=== PATIENT | male | born 1955 | race Caucasian/White ===

== ENCOUNTER 2016-06-04 10:30 | Emergency (ER) | payer MEDICARE, OTHER ==
[2016-06-04 10:57] VITALS: TEMP 98.8; BMI 24.3
--- NOTE | 2016-06-04 11:34 | EDPRACDOC ---
- General Information Chief Complaint: Bite Stated Complaint: DOG BITE Time Seen by Provider: 06/04/16 11:21 Information Source: Patient Mode Of Arrival: Car Home Medications: Home Medications Calcium Carbonate/Vitamin D3 [Calcium 500 + Vit D Caplet] 1 each PO DAILY [place]-3 Fatty Acids/Fish Oil [Fish Oil 1,[address]] 1 cap PO DAILY 12/12 Omeprazole 20 mg PO DAILY 12/12/13 Tramadol HCl 50 mg PO DAILY 12/12/13 Amox Tr/Potassium Clavulanate [Augmentin Tablet (875mg/125mg)] 1 tab PO BID #14 tablet 06/04/16 Hydrocodone Bit/Acetaminophen [Lortab 5/325] 1 tab PO Q4-6H PRN #15 tab Allergies/Adverse Reactions: Allergies Allergy/AdvReac Type Severity Reaction Status Date / Time No Known Allergies Allergy Verified 12/13/13 07:13 - History of Present Illness 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 R hand dominate. Tetanus UTD, Rabies UTD, animal control notified. 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 Bite Location: Reports: Wrist Bite Cause: Dog Symptoms: Reports: Pain Bite Wound: Reports: Laceration Animal Immunization Status: Current Pain Severity: Moderate Shortness of Breath: None Pruritus Severity: None Last Tetanus: Yes Associated signs and symptoms: Denies: Chills, Bullae, Dizziness, Fever, Fasciculations, Hematemesis, Nausea, Hematuria, Pus, Numbness, Vomiting, Weakness, Swelling, Redness, Other ED Past Medical History - History Reviewed Yes Nurses notes reviewed and agree except as marked - Patient Medical History Respiratory History: Reports: Asthma Musculoskeletal History: Reports: Osteoarthritis Systemic History: Reports: Cancer, Anemia Surgical History: Reports: Appendectomy, Hernia Surgery - Family Medical History Reports: Stroke - Social Medical History Smoking Status: Never smoker ETOH: None Substance Abuse: None EDM Review of Systems - Review of Systems Constitutional: No Symptoms Reported. negative: Fever, Chills, Weakness, Fatigue, Loss of Appetite Respiratory: No Symptoms Reported. negative: Cough, Brassy Cough, Barky Cough, Shortness of Breath, Wheezing, Hemoptysis Cardiovascular: No Symptoms Reported. negative: Chest Pain, Palpitations, Syncope, Edema, Orthopnea, PND, Skin Mottling, Cyanosis Neurological: No Symptoms Reported. negative: Headache, Dizziness, Seizure, Numbness, Weakness, Speech Difficulty, Gait Difficulty Musculoskeletal: Wrist Integumentary: Wound Allergic/Immunologic: No Symptoms Reported. negative: Hives, Itching Hematologic: No Symptoms Reported. negative: Lymphadenopathy, Easy Bruising, Easy Bleeding Psychiatric: No Symptoms Reported. negative: Anxiety, Depression, Hallucinations, Insomnia, Suicidal - Physical Exam Constitutional: Alert Oriented to: Time, Person, Place Last recorded Vital Signs: Last Vital Signs Temp 98.8 F 06/04/16 10:54 Pulse 87 06/04/16 10:54 Resp 18 06/04/16 10:54 BP 175/104 H 06/04/16 10:54 Pulse Ox 97 06/04/16 10:54 Oxygen Pulse Oxygen Saturation 97 O2 Device Room Air Oxygen Flow Rate Fraction of Inspired Oxygen ( FIO2) - HEENT Head: Normal ( normocephalic) - Respiratory/Cardiovascular Respiratory: Normal - CTA (BBS clear to auscultation without adventitious sounds ) Cardiovascular: Normal (RRR without murmur, gallop or rub) - Musculoskeletal Extremities: Normal (Normal tone, Pulses 2+ No cyanosis or edema, FROM) - Integumentary Skin: Normal, Warm, Dry Lymphatics: Normal (no adenopathy) - Neurologic Memory Impaired: Normal Motor Function: Normal Mood Description: Normal Perception: Normal ED Bite Exam - Bite Exam Bite Location: Wrist Wound: Laceration Involvement: Immediate Area Pain Severity: None Involved Limb Distal/Sensory Function: Normal ED Procedures - Suture/Laceration Suture #1 Right Proximal Dorsal Wrist Wound Length (cm): 2 Wound's Depth, Shape: irregular, flap Wound Explored: clean Irrigated w/ Saline (ccs): 100 Betadine Prep?: Yes Anesthesia: Lidocaine w/ Epi Volume Anesthetic (ccs): 3 Wound Repaired With: Sutures Suture Size/Type: 4:0, nylon Number of Sutures: 5 (simple) Sterile Dressing Applied?: No - Differential Diagnosis Laceration Decision Time to Discharge: 11:57 - Departure Disposition: Home Condition: Good Final Diagnosis: R wrist laceration 2 cm simple, Dog bite Instructions: Animal Bite (ED), Care For Your Stitches (ED), Laceration (ED) Education/Counseling Given To: Patient Education/Counseling Given Regarding: Diagnosis, Treatment, Follow Up Referrals: Paxton Winter MD [Primary Care Provider] - One Week Prescriptions: Amox Tr/Potassium Clavulanate [Augmentin Tablet (875mg/125mg)] 1 tab PO BID #14 tablet Hydrocodone Bit/Acetaminophen [Lortab 5/325] 1 tab PO Q4-6H PRN #15 tab PRN Reason: Pain Additional Instructions: Suture removed in 7-10 days. Return for worse or different symptoms.
[2016-06-04 12:13] VITALS: BP 156/92; PULSE 86
== END 2016-06-04 12:09 | disposition home or self-care (01) ==
LOC: ED 10:30 → EDMC 12:09
DX: S61.551A Open bite of right wrist, initial encounter (principal); W54.0XXA Bitten by dog, initial encounter
CPT/HCPCS: 12001; 99282; J3490

== ENCOUNTER 2016-06-13 23:55 | Inpatient (IN) | payer MEDICARE, OTHER ==
[2016-06-14] MEDS ORDERED: ONDANSETRON HCL 4 MG/2 ML VIAL IV ONE (01:35)
[2016-06-14] MEDS ORDERED: NS 1,000 ML IV ONE (01:35)
[2016-06-14] MEDS ORDERED: MORPHINE 4 MG/ML INJECTION IV ONE (01:35)
--- NOTE | 2016-06-14 01:40 | EDPRACDOC ---
[id number] Seen by Provider: 06/14/16 01:32 Mode Of Arrival: Car Home Medications: Home Medications Omeprazole 20 mg PO DAILY 12/12/13 Losartan/Hydrochlorothiazide [Losartan-Hctz 50-12.5 mg Tab] 1 tab PO Q48H Allergies/Adverse Reactions: Allergies Allergy/AdvReac Type Severity Reaction Status Date / Time No Known Allergies Allergy Verified 06/14/16 00:15 - History of Present Illness Onset: 1499 HPI: PT SAID THAT HE'S HAD UPPER ABD PAIN SINCE YESTERDAY. PT SAID HE TOOK PEPTO BISMOL AND IT HAS NOT HELPED. 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 Pain Location: Reports: Epigastric Pain Context: Reports: Spontaneous Pain Severity: Moderate Pain Quality: Reports: Sharp Pain Radiation: Reports: No Radiation Modifying Factors: improves with: Nothing Associated Signs & Symptoms: Reports: Nausea Oral Intake: Decreased Urinary Output: Decreased - Treatment Prior to ED Arrival Reported Medications/Treatment ADVERTISING ANALYST Treated With Medication ADVERTISING ANALYST YES Medications ADVERTISING ANALYST (Medication/ kaopectate 30 cc @ 2200 Dose/Time) Peptobismol 30 cc @ 2300 ED Past Medical History - Patient Medical History Respiratory History: Reports: Asthma GI/ History: Reports: Gastroesophageal Reflux, Ulcer Musculoskeletal History: Reports: Osteoarthritis Systemic History: Reports: Cancer (esophogeal), Anemia Surgical History: Reports: Appendectomy, Hernia Surgery, Other (BILATERAL SHOULDER) - Family Medical History Reports: Stroke - Social Medical History Smoking Status: Never smoker ETOH: None Substance Abuse: None Lives In: Home EDM Review of Systems - Review of Systems ROS Negative Except as Marked: Yes All systems reviewed and were negative except as marked Gastrointestinal: Pain - Physical Exam Constitutional: Alert (Awake), No apparent distress Oriented to: Time, Person, Place Last recorded Vital Signs: Last Vital Signs Temp 100.4 F 06/14/16 21:29 Pulse 106 06/14/16 21:29 Resp 18 06/14/16 21:29 BP 126/56 L 06/14/16 21:29 Pulse Ox 92 06/14/16 21:29 Oxygen Pulse Oxygen Saturation 97 O2 Device Room Air Oxygen Flow Rate Fraction of Inspired Oxygen ( FIO2) - HEENT Head: Normal ( normocephalic) Eye Exam: Normal (PERRL, EOMI, Sclera white) Oropharynx: Normal (Pharynx:Moist without exudate,Gums-no swelling) ENT EAC: Normal TMJ: Normal Nose: No Symptoms Reported (septum midline) Neck: Normal (FROM, trachea at midline) - Respiratory/Cardiovascular Respiratory: Normal - CTA (BBS clear to auscultation without adventitious sounds ) Cardiovascular: Normal (RRR without murmur, gallop or rub) - GI Auscultation: Normal (NABS) Palpation: Normal (Soft,No rebound or guarding, non distended) Tenderness: Mild, Epigastric Tello's Sign: Negative - Musculoskeletal Back: Normal (Non-Tender) Extremities: Normal (Normal tone, Pulses 2+ No cyanosis or edema, FROM) - Integumentary Skin: Normal, Warm, Dry Lymphatics: Normal (no adenopathy) - Neurologic Memory Impaired: Normal Motor Function: Normal (Normal tone, Pulses 2+ No cyanosis or edema, FROM) Cranial Nerve: Normal (CN II-X11 intact sensation, strength 5/5) Cerebellar: Normal Mood Description: Normal Thought: Coherent Perception: Normal - Results 06/14/16 01:42 06/14/16 01:42 WBC 11.8 xk/uL (3.8-10.8) H 06/14/16 01:42 RBC 4.38 xM/uL (4.70-6.10) L 06/14/16 01:42 Hgb 13.7 g/dL (14.0-18.0) L 06/14/16 01:42 Hct 39.4 % (42-52) L 06/14/16 01:42 MCV 90 fL (80-94) 06/14/16 01:42 MCH 31.2 pg (27-32) 06/14/16 01:42 MCHC 34.6 g/dl (33-36) 06/14/16 01:42 RDW 13.4 % (11.5-14.5) 06/14/16 01:42 Plt Count 203 xk/uL (130-400) 06/14/16 01:42 MPV 8.2 fL (7.4-10.4) 06/14/16 01:42 Neut % (Auto) 86.5 % (45-76) H 06/14/16 01:42 Lymph % (Auto) 4.2 % (17-44) L 06/14/16 01:42 [place] % (Auto) 7.9 % (3-10) 06/14/16 01:42 Eos % (Auto) 1.0 % (0-5) 06/14/16 01:42 Baso % (Auto) 0.4 % (0-2) 06/14/16 01:42 Absolute Neuts (auto) 10.15 xk/uL (1.7-8.2) H 06/14/16 01:42 Absolute Lymphs (auto) 0.47 xk/uL (0.65-4.75) L 06/14/16 01:42 Sodium 119 mEq/L (137-146) L* 06/14/16 01:42 Potassium 3.5 mEq/L (3.5-5.1) 06/14/16 01:42 Chloride 83 mEq/L (98-107) L 06/14/16 01:42 Carbon Dioxide 24 mMOL/L (22-33) 06/14/16 01:42 Anion Gap 16 mEq/L (8-16) 06/14/16 01:42 BUN 10 MG/DL (9-20) 06/14/16 01:42 Creatinine 0.60 MG/DL (0.66-1.25) L 06/14/16 01:42 Estimated GFR (MDRD) > 60 mL/min (>=60) 06/14/16 01:42 Glucose 121 MG/DL (70-99) H 06/14/16 01:42 Calculated Osmolality 230 MOs/Kg (270-290) L 06/14/16 01:42 Calcium 9.3 MG/DL (8.4-10.2) 06/14/16 01:42 Total Bilirubin 0.6 MG/DL (0.2-1.3) 06/14/16 01:42 AST 31 IU/L (17-59) 06/14/16 01:42 ALT 48 IU/L (21-72) 06/14/16 01:42 Alkaline Phosphatase 86 IU/L (50-160) 06/14/16 01:42 Troponin I < 0.01 ng/mL (<.04) 06/14/16 01:42 Total Protein 7.4 G/DL (6.3-8.2) 06/14/16 01:42 Albumin 4.3 G/DL (3.5-5.0) 06/14/16 01:42 Lipase 233 U/L (23-300) 06/14/16 01:42 Urine Color Pale yellow 06/14/16 01:35 Urine Clarity Clear 06/14/16 01:35 Urine pH 6.0 (5.0-8.0) 06/14/16 01:35 Ur Specific [place] 1.025 (1.003-1.035) 06/14/16 01:35 Urine Protein Neg (NEG/TRACE) 06/14/16 01:35 Urine Glucose (UA) Neg (NEGATIVE) 06/14/16 01:35 Urine Ketones 1+ (NEGATIVE) H 06/14/16 01:35 Urine Occult Blood Neg (NEG/TRACE) 06/14/16 01:35 Urine Nitrite Neg (NEGATIVE) 06/14/16 01:35 Urine Bilirubin Neg (NEGATIVE) 06/14/16 01:35 Urine Urobilinogen <2.0 MG/DL (0-1) 06/14/16 01:35 Ur Leukocyte Esterase Neg (NEGATIVE) 06/14/16 01:35 Urine RBC 0-2 (0-2) 06/14/16 01:35 Urine WBC 0-2 (0-2) 06/14/16 01:35 Urine Bacteria Few (NEG/FEW) 06/14/16 01:35 Urine Mucus Occ (NEG/OCC) 06/14/16 01:35 Lab Results 06/14/16 06/14/16 06/14/16 01:42 01:42 01:42 WBC 11.8 H RBC 4.38 L Hgb 13.7 L Hct 39.4 L MCV 90 MCH 31.2 MCHC 34.6 RDW 13.4 Plt Count 203 MPV 8.2 Neut % (Auto) 86.5 H Lymph % (Auto) 4.2 L [place] % (Auto) 7.9 Eos % (Auto) 1.0 Baso % (Auto) 0.4 Absolute Neuts (auto) 10.15 H Absolute Lymphs (auto) 0.47 L Sodium 119 L* Potassium 3.5 Chloride 83 L Carbon Dioxide 24 Anion Gap 16 BUN 10 Creatinine 0.60 L Estimated GFR (MDRD) > 60 Glucose 121 H Calculated Osmolality 230 L Calcium 9.3 Total Bilirubin 0.6 AST 31 ALT 48 Alkaline Phosphatase 86 Troponin I < 0.01 Total Protein 7.4 Albumin 4.3 Lipase 233 Urine Color Urine Clarity Urine pH Ur Specific [place] Urine Protein Urine Glucose (UA) Urine Ketones Urine Occult Blood Urine Nitrite Urine Bilirubin Urine Urobilinogen Ur Leukocyte Esterase Urine RBC Urine WBC Urine Bacteria Urine Mucus 06/14/16 01:35 WBC RBC Hgb Hct MCV MCH MCHC RDW Plt Count MPV Neut % (Auto) Lymph % (Auto) [place] % (Auto) Eos % (Auto) Baso % (Auto) Absolute Neuts (auto) Absolute Lymphs (auto) Sodium Potassium Chloride Carbon Dioxide Anion Gap BUN Creatinine Estimated GFR (MDRD) Glucose Calculated Osmolality Calcium Total Bilirubin AST ALT Alkaline Phosphatase Troponin I Total Protein Albumin Lipase Urine Color Pale yellow Urine Clarity Clear Urine pH 6.0 Ur Specific [place] 1.025 Urine Protein Neg Urine Glucose (UA) Neg Urine Ketones 1+ H Urine Occult Blood Neg Urine Nitrite Neg Urine Bilirubin Neg Urine Urobilinogen <2.0 Ur Leukocyte Esterase Neg Urine RBC 0-2 Urine WBC 0-2 Urine Bacteria Few Urine Mucus Occ - EKG EKG #1 EKG Time: 02:13 -: Yes EKG interpreted by me Rate: bpm: 69 [place]: Normal Rhythm: NSR Block: None Hypertrophy: None ST: Normal - Diagnostic Imaging Abdomen Image interpreted by: Radiologist 06/14/16 03:05 1. No acute abnormality seen to explain the patient's symptoms. 2. Diffuse coronary artery calcifications seen. 3. Mild scattered calcification along the abdominal aorta and its branches. 4. Mildly enlarged prostate noted. Decision Time to Discharge: 03:09 - Departure Yes I personally saw and evaluated the patient. Disposition: Home Condition: Fair Final Diagnosis: Abdominal pain, Hyponatremia Education/Counseling Given To: Patient Education/Counseling Given Regarding: Diagnosis, Treatment Decision to Admit Time: 03:10 Decision to admit date: 06/14/16 Decision to admit: from ED - Physician Consulted Hospitalist Provider Called: You Mancilla
[2016-06-14] MEDS ORDERED: Pharmacy Review for Metformin - IV Contrast Given SCH (02:00)
[2016-06-14 02:09] LABS: LEUKOCYTES/URINE NEG (NEGATIVE); NITRITE/URINE NEG (NEGATIVE); RBC/URINE 0-2 (0-2); URINE OCCULT BLOOD NEG (NEG/TRACE); WBC/URINE 0-2 (0-2)
[2016-06-14 02:11] LABS: AUTOMATED BASOPHIL 0.4 % (0-2); AUTOMATED LYMPH 4.2 % (17-44); AUTOMATED MONOCYTE 7.9 % (3-10); AUTOMATED NEUTROPHIL 86.5 % (45-76); MPV 8.2 fL (7.4-10.4)
[2016-06-14 02:17] LABS: BLOOD UREA NITROGEN 10 MG/DL (9-20); CALCIUM 9.3 MG/DL (8.4-10.2); CALCULATED OSMOLALITY 230 MOs/Kg (270-290); CHLORIDE 83 mEq/L (98-107); GLUCOSE 121 MG/DL (70-99); TOTAL PROTEIN 7.4 G/DL (6.3-8.2)
[2016-06-14 02:21] LABS: SODIUM LEVEL 119 mEq/L (137-146)
[2016-06-14] MEDS ORDERED: HYDROmorphone 1 MG INJECTION IV ONE ×2 (02:23→02:50)
--- NOTE | 2016-06-14 03:02 | DIRPT ---
CLINICAL DATA: Acute onset of severe epigastric abdominal pain and leukocytosis. Initial encounter. EXAM: CT ABDOMEN AND PELVIS WITH CONTRAST TECHNIQUE: Multidetector CT imaging of the abdomen and pelvis was performed using the standard protocol following bolus administration of intravenous contrast. CONTRAST: 100 mL of Isovue 370 IV contrast COMPARISON: CT of the lumbar spine performed 10/01/2012 FINDINGS: Minimal bibasilar atelectasis or scarring is noted. Diffuse coronary artery calcifications are seen. The liver and spleen are unremarkable in appearance. The gallbladder is distended, with minimal nonspecific surrounding soft tissue stranding. The pancreas and adrenal glands are unremarkable. The kidneys are unremarkable in appearance. There is no evidence of hydronephrosis. No renal or ureteral stones are seen. Minimal nonspecific perinephric stranding is noted bilaterally. No free fluid is identified. The small bowel is unremarkable in appearance. The stomach is within normal limits. No acute vascular abnormalities are seen. Mild scattered calcification is noted along the abdominal aorta and its branches. The appendix is normal in caliber, without evidence of appendicitis. The colon is unremarkable in appearance. The bladder is mildly distended and grossly unremarkable in appearance. The prostate is mildly enlarged, measuring 5.1 cm in transverse dimension. No inguinal lymphadenopathy is seen. No acute osseous abnormalities are identified. The patient is status post lumbar spinal fusion at L4-L5. IMPRESSION: 1. No acute abnormality seen to explain the patient's symptoms. 2. Diffuse coronary artery calcifications seen. 3. Mild scattered calcification along the abdominal aorta and its branches. 4. Mildly enlarged prostate noted. Electronically Signed By: Ravinder Vera M.D. On: 06/14/2016 02:59
--- NOTE | 2016-06-14 03:23 | HISTPHYS ---
- Chief Complaint abdominal pain - History of Present Illness PRIMARY CARE PROVIDER: Dr. Winter HPI: The patient is a 61 yo man who presents with abdominal pain. Onset: yesterday at lunch. Duration: progressively worsening. Location: epigastric. Radiation: between shoulder blades on back. Character: 10/10. Crampy and also dull ache. Alleviated by: Eating helped briefly but then the patient would worsen again. Exacerbated by: Nothing. Associated Symptoms: Nausea. No vomiting. Minimal diarrhea yesterday morning. No constipation or bloody stool. No fever but did have chills. No diaphoresis. Treatments: none at home except usual medications. Tried Pepto-Bismol and another OTC medication but it did not help. Has been on Augmentin for a dog bite from about 10 days ago; has had the 10th and final day yesterday. He has been trying to drink more water lately. Had evaluation yesterday morning by a therapist and he had a decent workout with that. He started hurting after the evaluation. - Medical History GI/ History: Reports: Gastroesophageal Reflux, Ulcer Musculoskeletal History: Reports: Osteoarthritis Systemic History: Reports: Cancer (esophogeal), Anemia PMH: Laryngeal cancer. Surgery and radiation treatment. - Surgical History Reports: Appendectomy (by Dr. Noble), Hernia Surgery (by Dr. Noble), Other (BILATERAL SHOULDER) PSH: Laryngeal cancer 2013 with surgery and radiation at [facility]. Back surgery 2013. Appendectomy 10 or more years ago. Hernia surgery x 2. - Medictions/Allergies Allergies No Known Allergies Allergy (Verified 06/14/16 00:15) Current Medication List: Reviewed Home Medications Calcium Carbonate/Vitamin D3 [Calcium 500 + Vit D Caplet] 1 each PO DAILY [place]-3 Fatty Acids/Fish Oil [Fish Oil 1,[address]] 1 cap PO DAILY 12/12 Omeprazole 20 mg PO DAILY 12/12/13 Tramadol HCl 50 mg PO DAILY 12/12/13 Amox Tr/Potassium Clavulanate [Augmentin Tablet (875mg/125mg)] 1 tab PO BID #14 tablet 06/04/16 Hydrocodone Bit/Acetaminophen [Lortab 5/325] 1 tab PO Q4-6H PRN #15 tab - Family History Reports: Cancer (Father: throat cancer), Stroke (Mother), Other (Mother: seizure ) - Social History Smoking Status: Never smoker (and no chewing tobacco.) Social History: Denies: Alcohol Use, Substance Use Disorder Is a [employer], and he states he refuses any blood products. - Review of Systems GENERAL: No fever but did have chills. No diaphoresis. Positive for fatigue/ malaise. HEENT: No ear pain or discharge. No nasal discharge or bleeding. No throat pain or swelling. No eye pain or eye redness. RESPIRATORY: No cough, wheezing, or shortness of breath. CARDIOVASCULAR: No chest pain or palpitations. GI: Abdominal pain, nausea. No vomiting, diarrhea, constipation, or bloody stool. NEUROLOGICAL: No headache or focal weakness. INTEGUMENT: no rashes, itching, or lesions. LYMPHATIC SYSTEM: no lymph node swelling or pain. MUSCULOSKELETAL: Except as per HPI, no new pain or joint swelling. GENITOURINARY: No dysuria or hematuria. ENDOCRINE: No polyuria or polydipsia. HEME: No chronic anemia, bleeding, or easy bruising. - Physical Exam Vital Signs: Initial Vitals Temperature 98.5 F 06/14/16 00:15 Pulse Rate 74 06/14/16 00:15 Respiratory Rate 17 06/14/16 00:15 Blood Pressure 159/74 06/14/16 00:15 Pulse Oxygen Saturation 96 06/14/16 00:15 Vital Signs - 24 hr 06/14/16 06/14/16 00:15 03:05 Temperature 98.5 F Pulse Rate 74 75 Respiratory 17 18 Rate Blood Pressure 159/74 158/74 Pulse Oxygen 96 97 Saturation Weight: 88.2 kg Height: 6 feet 1 inch BMI: 25.7 - Other Exam Other Exam Findings: GENERAL: Ill-appearing, well nourished, in acute distress. HEENT: Normocephalic, atraumatic; pupils equal and round. Nares patent, without discharge or bleeding. No oropharyngeal lesions or erythema. Mucous membranes are dry. NECK: is supple, no masses, trachea midline. RESPIRATORY: Clear to auscultation bilaterally. Chest wall movements are symmetric. No use of accessory muscles to breathe. No wheezing, rales, rhonchi. CARDIOVASCULAR: Normal S1, S2. No murmurs, rubs, or gallops. PMI non-displaced. Carotids: no carotid bruits. No bradycardia or tachycardia. DP pulses 2+ bilaterally. GI: soft, non-distended, normal active bowel sounds. No hepatosplenomegaly. Tenderness in epigastric and right upper quadrant regions. INTEGUMENT: Clean, dry, and intact. No rashes. Has wound on right forearm with scar tissue and several sutures visible; no erythema, exudate, warmth at or surrounding the site. MUSCULOSKELETAL: Moving all extremities. No cyanosis. No clubbing. Edema: none bilaterally. NEUROLOGICAL: Cranial nerves 2-12 grossly intact. Motor 5/5 throughout. Reflexes : 2+ bilaterally. Babinski: toes downgoing bilaterally. Intact Finger to nose. Sensory grossly intact to light touch. Intact rapid alternating movements bilaterally. No pronator drift. PSYCHIATRIC: Fully oriented. Normal and appropriate affect. LYMPHATIC: No cervical lymphadenopathy. No supraclavicular lymphadenopathy. - Lab Results Laboratory Results - last 24 hr 06/14/16 06/14/16 06/14/16 01:35 01:42 01:42 WBC 11.8 H RBC 4.38 L Hgb 13.7 L Hct 39.4 L MCV 90 MCH 31.2 MCHC 34.6 RDW 13.4 Plt Count 203 MPV 8.2 Neut % (Auto) 86.5 H Lymph % (Auto) 4.2 L [place] % (Auto) 7.9 Eos % (Auto) 1.0 Baso % (Auto) 0.4 Absolute Neuts (auto) 10.15 H Absolute Lymphs (auto) 0.47 L Sodium 119 L* Potassium 3.5 Chloride 83 L Carbon Dioxide 24 Anion Gap 16 BUN 10 Creatinine 0.60 L Estimated GFR (MDRD) > 60 Glucose 121 H Calculated Osmolality 230 L Calcium 9.3 Total Bilirubin 0.6 AST 31 ALT 48 Alkaline Phosphatase 86 Troponin I Total Protein 7.4 Albumin 4.3 Lipase 233 Urine Color Pale yellow Urine Clarity Clear Urine pH 6.0 Ur Specific [place] 1.025 Urine Protein Neg Urine Glucose (UA) Neg Urine Ketones 1+ H Urine Occult Blood Neg Urine Nitrite Neg Urine Bilirubin Neg Urine Urobilinogen <2.0 Ur Leukocyte Esterase Neg Urine RBC 0-2 Urine WBC 0-2 Urine Bacteria Few Urine Mucus Occ 06/14/16 01:42 WBC RBC Hgb Hct MCV MCH MCHC RDW Plt Count MPV Neut % (Auto) Lymph % (Auto) [place] % (Auto) Eos % (Auto) Baso % (Auto) Absolute Neuts (auto) Absolute Lymphs (auto) Sodium Potassium Chloride Carbon Dioxide Anion Gap BUN Creatinine Estimated GFR (MDRD) Glucose Calculated Osmolality Calcium Total Bilirubin AST ALT Alkaline Phosphatase Troponin I < 0.01 Total Protein Albumin Lipase Urine Color Urine Clarity Urine pH Ur Specific [place] Urine Protein Urine Glucose (UA) Urine Ketones Urine Occult Blood Urine Nitrite Urine Bilirubin Urine Urobilinogen Ur Leukocyte Esterase Urine RBC Urine WBC Urine Bacteria Urine Mucus - Diagnostic Findings EK beats per minute. Normal sinus rhythm. Nonspecific ST abnormality. Reviewed EKG personally. CT abdomen and pelvis: EXAM: CT ABDOMEN AND PELVIS WITH CONTRAST TECHNIQUE: Multidetector CT imaging of the abdomen and pelvis was performed using the standard protocol following bolus administration of intravenous contrast. CONTRAST: 100 mL of Isovue 370 IV contrast COMPARISON: CT of the lumbar spine performed 10/01/2012 FINDINGS: Minimal bibasilar atelectasis or scarring is noted. Diffuse coronary artery calcifications are seen. The liver and spleen are unremarkable in appearance. The gallbladder is distended, with minimal nonspecific surrounding soft tissue stranding. The pancreas and adrenal glands are unremarkable. The kidneys are unremarkable in appearance. There is no evidence of hydronephrosis. No renal or ureteral stones are seen. Minimal nonspecific perinephric stranding is noted bilaterally. No free fluid is identified. The small bowel is unremarkable in appearance. The stomach is within normal limits. No acute vascular abnormalities are seen. Mild scattered calcification is noted along the abdominal aorta and its branches. The appendix is normal in caliber, without evidence of appendicitis. The colon is unremarkable in appearance. The bladder is mildly distended and grossly unremarkable in appearance. The prostate is mildly enlarged, measuring 5.1 cm in transverse dimension. No inguinal lymphadenopathy is seen. No acute osseous abnormalities are identified. The patient is status post lumbar spinal fusion at L4-L5. IMPRESSION: 1. No acute abnormality seen to explain the patient's symptoms. 2. Diffuse coronary artery calcifications seen. 3. Mild scattered calcification along the abdominal aorta and its branches. 4. Mildly enlarged prostate noted. Note: Above findings include: The gallbladder is distended, with minimal nonspecific surrounding soft tissue stranding. - Assessment (1) Hyponatremia E87.1 - HYPO-OSMOLALITY AND HYPONATREMIA Acute Present on Admission: Yes Etiology unclear. Reports drinking more water lately. Plan: Trial of IVFs. Monitor Na levels. (2) Acute cholecystitis K81.0 - ACUTE CHOLECYSTITIS Acute Present on Admission: Yes Strongly suspected. Plan: US abdomen. Consult general surgery. (3) Epigastric abdominal pain R10.13 - EPIGASTRIC PAIN Acute Present on Admission: Yes Plan: IV dilaudid. (4) Chills R68.83 - CHILLS (WITHOUT FEVER) Acute Present on Admission: Yes Plan: Cultures ordered. Monitor. Case Care Discussed with: Patient, Nursing Staff
[2016-06-14] MEDS ORDERED: HYDROmorphone 1 MG INJECTION ONE (04:31)
[2016-06-14] MEDS: HYDROmorphone 1 MG INJECTION IV PRN ×10 (04:32→23:35)
[2016-06-14] MEDS ORDERED: NS 500 ML IV ONE (06:33)
[2016-06-14] MEDS ORDERED: SENNA CONCENTRATE TAB PO PRN (06:37)
[2016-06-14] MEDS ORDERED: BISACODYL 5 MG TAB PO PRN (06:37)
[2016-06-14] MEDS ORDERED: TEMAZEPAM 15 MG CAP PO PRN (06:37)
[2016-06-14] MEDS ORDERED: BENZONATATE 100 MG PERLES PO PRN (06:37)
[2016-06-14] MEDS ORDERED: GUAIFEN 100 MG-DEXTROMETH 10 MG PER 5 ML PO PRN (06:37)
[2016-06-14] MEDS ORDERED: ACETAMINOPHEN 325 MG SUPP PR PRN (06:37)
[2016-06-14] MEDS ORDERED: ONDANSETRON HCL 4 MG/2 ML VIAL IV PRN (06:37)
[2016-06-14] MEDS ORDERED: ACETAMINOPHEN 325 MG/TAB TABLET PO PRN (06:37)
[2016-06-14] MEDS ORDERED: SIMETHICONE 80 MG TAB PO PRN (06:37)
[2016-06-14] MEDS ORDERED: Vaccine Screening Complete SCH (07:00)
[2016-06-14] MEDS: PROMETHAZINE 25 MG/ML VIAL IV PRN (08:36)
[2016-06-14] MEDS: NS 1,000 ML IV SCH ×2 (08:39→16:27)
[2016-06-14] MEDS: PANTOPRAZOLE 40 MG VIAL IV SCH ×2 (08:41→17:18)
--- NOTE | 2016-06-14 08:49 | DIRPT ---
CLINICAL DATA: Epigastric pain EXAM: ABDOMEN ULTRASOUND COMPLETE COMPARISON: CT from earlier in the same day. FINDINGS: Gallbladder: Multiple gallstones are noted within the gallbladder. Common bile duct: Diameter: 3 mm. Liver: No focal lesion identified. Within normal limits in parenchymal echogenicity. IVC: No abnormality visualized. Pancreas: Not well visualized. Previously noted to be within normal limits on CT. Spleen: Size and appearance within normal limits. Right Kidney: Length: 9.3 cm.. Echogenicity within normal limits. No mass or hydronephrosis visualized. Left Kidney: Length: 10.5 cm.. Echogenicity within normal limits. No mass or hydronephrosis visualized. Abdominal aorta: No aneurysm visualized. Other findings: None. IMPRESSION: Cholelithiasis without complicating factors. Electronically Signed By: Talib Pardo M.D. On: 06/14/2016 08:46
--- NOTE | 2016-06-14 09:51 | PCM.SURGCO ---
Consultation Date: 06/14/16 Requesting Physician: [employer] Specialist: Alfred Wood Consult Reason: Abdominal Pain - History of Present Illness 61-year-old male with one-day history of epigastric pain and nausea. Patient denies fevers or chills. He describes the pain as sharp and in the right upper quadrant and epigastric area. He admits to having some vague similar pains previously. He has had normal bowel movements. No diarrhea. No constipation. He denies any yellow jaundice. He came to the emergency department for evaluation. He was noted to be hyponatremic. CT scan the abdomen did not show gallstones. Ultrasound today shows gallstones with no complicating factors that would be indicative of acute cholecystitis. Patient states that pushing on his abdomen makes the pain worse. He states the pain medication has made the pain better. I was asked for surgical consultation. 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 Noble), Hernia Surgery ( Dr. Noble (patient reports ventral/incisional hernia and inguinal hernia), Other (BILATERAL SHOULDER) Allergies No Known Allergies Allergy (Verified 06/14/16 00:15) Home Medications Calcium Carbonate/Vitamin D3 [Calcium 500 + Vit D Caplet] 1 each PO DAILY Omeprazole 20 mg PO DAILY 12/12/13 - Social History Smoking Status: Never smoker (and no chewing tobacco.) Social History: Reports: Alcohol Use. Denies: Substance Use Disorder - Family History Reports: Cancer (Father: throat cancer), Stroke (Mother), Other (Mother: seizure ) - Review of Systems Yes All systems reviewed and were negative except as marked Gastrointestinal: Nausea, Abdominal Pain - Physical Exam Vital Signs: Initial Vitals Temperature 98.5 F 06/14/16 00:15 Pulse Rate 74 06/14/16 00:15 Respiratory Rate 17 06/14/16 00:15 Blood Pressure 159/74 06/14/16 00:15 Pulse Oxygen Saturation 96 06/14/16 00:15 Exam: General: Pleasant male No acute distress. HEENT: Normocephalic atraumatic. Sclerae nonicteric. Extraocular movements intact. Oral mucosa pink and moist. Neck: Supple. Nontender. Good range of motion. No masses. Trachea is midline. No cervical adenopathy. Lungs: Clear to auscultation. No rhonchi or wheezing. Good excursion. Heart: Regular rate and rhythm. No murmurs or rubs. Abdomen: Soft, active bowel sounds, nondistended. No hepatosplenomegaly. Multiple well-healed incisions. No abdominal wall defects or masses. Mild tenderness in the epigastric area, No guarding or rebound. Groins: No hernias or masses. Back: No CVA tenderness. No ecchymosis.. Skin: Warm and dry, no erythema , no ulcerations. No jaundice. - Lab Results 06/14/16 01:42 06/14/16 01:42 - Diagnostic Findings EXAM: CT ABDOMEN AND PELVIS WITH CONTRAST TECHNIQUE: Multidetector CT imaging of the abdomen and pelvis was performed using the standard protocol following bolus administration of intravenous contrast. CONTRAST: 100 mL of Isovue 370 IV contrast COMPARISON: CT of the lumbar spine performed 10/01/2012 FINDINGS: Minimal bibasilar atelectasis or scarring is noted. Diffuse coronary artery calcifications are seen. The liver and spleen are unremarkable in appearance. The gallbladder is distended, with minimal nonspecific surrounding soft tissue stranding. The pancreas and adrenal glands are unremarkable. The kidneys are unremarkable in appearance. There is no evidence of hydronephrosis. No renal or ureteral stones are seen. Minimal nonspecific perinephric stranding is noted bilaterally. No free fluid is identified. The small bowel is unremarkable in appearance. The stomach is within normal limits. No acute vascular abnormalities are seen. Mild scattered calcification is noted along the abdominal aorta and its branches. The appendix is normal in caliber, without evidence of appendicitis. The colon is unremarkable in appearance. The bladder is mildly distended and grossly unremarkable in appearance. The prostate is mildly enlarged, measuring 5.1 cm in transverse dimension. No inguinal lymphadenopathy is seen. No acute osseous abnormalities are identified. The patient is status post lumbar spinal fusion at L4-L5. IMPRESSION: 1. No acute abnormality seen to explain the patient's symptoms. 2. Diffuse coronary artery calcifications seen. 3. Mild scattered calcification along the abdominal aorta and its branches. 4. Mildly enlarged prostate noted. Electronically Signed By: Ravinder Vera M.D. On: 06/14/2016 02:59 EXAM: ABDOMEN ULTRASOUND COMPLETE COMPARISON: CT from earlier in the same day. FINDINGS: Gallbladder: Multiple gallstones are noted within the gallbladder. Common bile duct: Diameter: 3 mm. Liver: No focal lesion identified. Within normal limits in parenchymal echogenicity. IVC: No abnormality visualized. Pancreas: Not well visualized. Previously noted to be within normal limits on CT. Spleen: Size and appearance within normal limits. Right Kidney: Length: 9.3 cm.. Echogenicity within normal limits. No mass or hydronephrosis visualized. Left Kidney: Length: 10.5 cm.. Echogenicity within normal limits. No mass or hydronephrosis visualized. Abdominal aorta: No aneurysm visualized. Other findings: None. IMPRESSION: Cholelithiasis without complicating factors. Electronically Signed By: Talib Pardo M.D. On: 06/14/2016 08:46 - Assessment/Plan (1) Epigastric abdominal pain R10.13 - EPIGASTRIC PAIN Acute Present on Admission: Yes Comment: Likely related to his biliary tract disease. He does not have acute cholecystitis. He likely has biliary colic with chronic cholecystitis and cholelithiasis. At some point could consider laparoscopic cholecystectomy with intraoperative cholangiography. The rationale for this was discussed with the patient. Nonsurgical therapy was discussed as well. Risks and benefits were discussed in detail. The patient is unsure whether he wants to pursue surgical therapy. He is considering waiting until Dr. Noble is back to make that decision. At any rate the patient would need his hyponatremia evaluated and corrected prior to any surgical intervention. (2) Calculus of gallbladder with chronic cholecystitis without obstruction K80.10 - CALCULUS OF GALLBLADDER W CHRONIC CHOLECYST W/O OBSTRUCTION Chronic Present on Admission: Yes Comment: Quite possibly the source of this patient's symptomatology currently. Could consider elective laparoscopic cholecystectomy with intraoperative cholangiography. The rationale for this was discussed with the patient. He would need to have his hyponatremia evaluated and corrected prior to surgical intervention. Patient's considering the surgical option. He does not have acute cholecystitis clinically. (3) Hyponatremia E87.1 - HYPO-OSMOLALITY AND HYPONATREMIA Acute Present on Admission: Yes Comment: Etiology of this is unknown. Medical evaluation and workup in process. Case Care Discussed with: Patient
--- NOTE | 2016-06-14 13:55 | GENMEDPROG ---
Subjective Note: Patient with no new complaints. Remains uncomfortable Notes Reviewed: Yes Events from last night noted and discussed with Clinical Staff Current Medication List: Reviewed Currently: Reports: Cough, Wheezing, MOSQUERA, Abdominal Pain. Denies: Fever/Chills DVT Prophylaxis: Yes - Physical Examination Vital Signs and I&O: Last Vital Signs Temp 98.1 F 06/14/16 09:48 Pulse 90 06/14/16 09:48 Resp 18 06/14/16 09:48 BP 158/71 06/14/16 09:48 Pulse Ox 96 06/14/16 09:48 Oxygen Pulse Oxygen Saturation 96 O2 Device Room Air Oxygen Flow Rate Fraction of Inspired Oxygen ( FIO2) Intake & Output 06/11/16 06/12/16 06/13/16 06/14/16 23:59 23:59 23:59 23:59 Intake Total 1030 Output Total 800 Balance 230 Patient's weight 87.997 kg General: Alert, Oriented x3, No acute distress, Well appearing, Well nourished Lymphatics: Normal (no adenopathy) Respiratory: Normal - CTA (BBS clear to auscultation without adventitious sounds ) Cardiovascular: Regular rate and rhythm (No bradycardia or tachycardia), Normal S1, No Gallops,Rubs/Murmurs, Normal S2, Good Pedal Pulses (DP pulses 2+ bilaterally) GI: Normal bowel sounds (normal active sounds), Soft (non-distended), Non tender , No hepatospenomegaly, No masses Extremities/Musculoskeletal: Normal pulses (DP pulses 2+ bilaterally) Skin: Warm,Dry and Intact, No rashes, No significant lesion Lab/DI/Studies Reviewed: Abnormal Lab Results 06/14/16 06/14/16 06/14/16 01:35 01:42 01:42 WBC 11.8 H RBC 4.38 L Hgb 13.7 L Hct 39.4 L Neut % (Auto) 86.5 H Lymph % (Auto) 4.2 L Absolute Neuts (auto) 10.15 H Absolute Lymphs (auto) 0.47 L Sodium 119 L* Chloride 83 L Creatinine 0.60 L Glucose 121 H Calculated Osmolality 230 L Urine Ketones 1+ H - Assessment (1) Hyponatremia Acute E87.1 - HYPO-OSMOLALITY AND HYPONATREMIA Comment/Plan: Continue free water restriction. Advance diet as tolerated (2) Cholelithiasis Acute K80.20 - CALCULUS OF GALLBLADDER W/O CHOLECYSTITIS W/O OBSTRUCTION Qualifiers: Cholelithiasis location: gallbladder Cholecystitis presence: without cholecystitis Cholangitis presence: C Cholecystitis acuity: C Cholangitis acuity: C Biliary obstruction: without biliary obstruction Qualified Code(s) : K80.20 - Calculus of gallbladder without cholecystitis without obstruction Comment/Plan: Further management per Dr. Wood. (3) Epigastric abdominal pain Acute R10.13 - EPIGASTRIC PAIN Comment/Plan: Try to limit IV medications. (4) Chills Acute R68.83 - CHILLS (WITHOUT FEVER) Comment/Plan: Await culture data monitor patient's status (5) Acute cholecystitis Ruled-out K81.0 - ACUTE CHOLECYSTITIS Comment/Plan: Patient without acute cholecystitis. Does have cholelithiasis however. Case Care Discussed with: Patient, Family, Nursing Staff Education/Counseling Given To: Patient, Family Member Education/Counseling Given Regarding: Diagnosis, Prognosis, Follow Up, Disposition Plan, Other Total Time: 45 minutes Critical Care: No Couseling Time (>50% in counseling/coordination): No
[2016-06-15] MEDS: NS 1,000 ML IV SCH ×5 (00:43→23:37)
[2016-06-15] MEDS: HYDROmorphone 1 MG INJECTION IV PRN ×9 (03:45→22:23)
[2016-06-15 05:17] LABS: MPV 8.3 fL (7.4-10.4)
[2016-06-15 05:25] LABS: BLOOD UREA NITROGEN 5 MG/DL (9-20); CALC CORRECTED 9.4 MG/DL (8.4-10.2); CALCIUM 8.5 MG/DL (8.4-10.2); CALCULATED OSMOLALITY 246 MOs/Kg (270-290); CHLORIDE 97 mEq/L (98-107); GLUCOSE 105 MG/DL (70-99); SODIUM LEVEL 129 mEq/L (137-146); TOTAL PROTEIN 5.8 G/DL (6.3-8.2)
[2016-06-15 05:51] VITALS: BMI 25.4
[2016-06-15] MEDS: PANTOPRAZOLE 40 MG VIAL IV SCH ×2 (06:20→18:06)
[2016-06-15] MEDS ORDERED: FLU VACCINE (Afluria) 0.5 ML DOSE IM ONE (08:00)
[2016-06-15] MEDS ORDERED: PNEUMOCOCCAL 0.5 ML VIAL IM ONE (08:00)
--- NOTE | 2016-06-15 10:43 | PCM.SURGRO ---
- Subjective Patient: Reports: Still having pain (but less) - Objective / Physical Exam Vital Signs: Temperature: 98.6 F (06/15/16 04:25) HR: 88 (06/15/16 04:25)RR: 16 (06/15/16 04: 25) BP: 105/62 (06/15/16 04:25)Pulse Ox: 92 (06/15/16 04:25) General: Alert Respiratory: Normal - CTA Cardiovascular: Regular rate and rhythm Gastrointestinal: Soft, Bowel Sounds, Tender (mild in RUQ). negative: Distended - Assessment and Plan (1) Epigastric abdominal pain Acute R10.13 - EPIGASTRIC PAIN Present on Admission: Yes Comment/Plan: Possibly due to biliary colic. (2) Calculus of gallbladder with chronic cholecystitis without obstruction Chronic K80.10 - CALCULUS OF GALLBLADDER W CHRONIC CHOLECYST W/O OBSTRUCTION Present on Admission: Yes Comment/Plan: Patient has symptomatic cholelithiasis and likely chronic cholecystitis. May benefit from laparoscopic cholecystectomy with intraoperative cholangiogram. Will make him NPO after midnight. Patient would like to be seen by Dr. Noble for evaluation. Will discuss with Dr. Noble in the am for consideration of lap choley with IOC. Risks and benefits discussed with the patient in detail. (3) Hyponatremia Acute E87.1 - HYPO-OSMOLALITY AND HYPONATREMIA Present on Admission: Yes Comment/Plan: Continue medical management.
[2016-06-16] MEDS: NS 1,000 ML IV SCH ×5 (05:39→23:05)
[2016-06-16] MEDS: PANTOPRAZOLE 40 MG VIAL IV SCH ×2 (05:40→17:40)
[2016-06-16] MEDS: HYDROmorphone 1 MG INJECTION IV PRN ×5 (05:44→23:51)
[2016-06-16] MEDS: PROMETHAZINE 25 MG/ML VIAL IV PRN (05:52)
[2016-06-16 07:19] LABS: AUTOMATED BASOPHIL 0.1 % (0-2); AUTOMATED LYMPH 4.2 % (17-44); AUTOMATED MONOCYTE 8.2 % (3-10); AUTOMATED NEUTROPHIL 85.5 % (45-76); MPV 7.9 fL (7.4-10.4)
[2016-06-16 07:40] LABS: BLOOD UREA NITROGEN 4 MG/DL (9-20); CALCIUM 8.3 MG/DL (8.4-10.2); CALCULATED OSMOLALITY 253 MOs/Kg (270-290); CHLORIDE 100 mEq/L (98-107); GLUCOSE 101 MG/DL (70-99); SODIUM LEVEL 133 mEq/L (137-146)
[2016-06-16] MEDS ORDERED: FLU VACCINE (Afluria) 0.5 ML DOSE IM ONE (08:00)
[2016-06-16] MEDS ORDERED: PNEUMOCOCCAL 0.5 ML VIAL IM ONE (08:00)
--- NOTE | 2016-06-16 09:03 | PCM.SURGRO ---
- Subjective Chief Complaint: right upper quadrant abdominal pain Hospital Day #: 4 (chronic cholecystitis with cholelithiasis) Patient: Reports: Still having pain (In the right upper quadrant), Voiding without difficulty, Flatus, Afebrile, Ambulating in Room. Denies: Nausea, Vomiting, Shortness of breath - Objective / Physical Exam Vital Signs: Temperature: 99.3 F (06/16/16 05:44) HR: 86 (06/16/16 05:44)RR: 20 (06/16/16 05: 44) BP: 155/74 (06/16/16 05:44)Pulse Ox: 93 (06/16/16 05:44) General: Alert, Oriented x3, Cooperative, No acute distress HEENT: Normal, Anicteric Sclera, Mucous membr. moist/pink Respiratory: Normal - CTA Cardiovascular: Regular rate and rhythm Gastrointestinal: Soft, Bowel Sounds, Tender (Tender in the right upper quadrant ). negative: Distended, Guarding, Firm, Rigid, Hernia Extremities: negative: Swelling, Edema Psych/Mental Status: Appropriate, Normal Affect, Cooperative. negative: Agitated, Anxious Neurological: Normal speech Skin: Warm,Dry and Intact, No rashes Lymphatics: Normal - Assessment and Plan (1) Cholelithiasis Chronic K80.20 - CALCULUS OF GALLBLADDER W/O CHOLECYSTITIS W/O OBSTRUCTION Present on Admission: Yes gallbladder with cholecystitis C C C without biliary obstruction Comment/Plan: We will plan for laparoscopic cholecystectomy with intraoperative cholangiogram , possible open incision. The indications, benefits and risks associated with the operation were discussed with the patient and the patient's daughter. All questions were answered. Informed consent was obtained. - Review of Systems Yes All systems reviewed and were negative except as marked (twelve systems reviewed with the patient.)
[2016-06-16] MEDS ORDERED: BUPIVACAINE 0.5% 30 ML VIAL ONE (09:32)
[2016-06-16] MEDS ORDERED: ISOVUE-300 (61%) 50 ML ONE ×2 (09:32→11:27)
[2016-06-16] MEDS ORDERED: CEFAZOLIN 1 GM VIAL ONE (10:19)
[2016-06-16] MEDS ORDERED: LABETALOL 20 MG/4 ML SYRINGE IV PRN (10:21)
[2016-06-16] MEDS ORDERED: PROMETHAZINE 25 MG/ML VIAL IV PRN ×2 (10:21)
[2016-06-16] MEDS ORDERED: MEPERIDINE 25 MG/ML TUBEX IV PRN (10:21)
[2016-06-16] MEDS ORDERED: hydrALAZINE 20 MG/ML VIAL IV PRN (10:21)
[2016-06-16] MEDS ORDERED: HYDROmorphone 1 MG INJECTION IV PRN ×2 (10:21)
[2016-06-16] MEDS ORDERED: ONDANSETRON HCL 4 MG/2 ML VIAL IV PRN (10:21)
[2016-06-16] MEDS ORDERED: FENTANYL 100 MCG/2 ML VIAL IV PRN ×2 (10:21)
[2016-06-16] MEDS ORDERED: ONDANSETRON HCL 4 MG ODT TAB PO PRN (10:21)
--- NOTE | 2016-06-16 10:22 | SC.ANESPOS ---
[id number], Hemodynamically Stable, Pain Control Adequate Phase I & II Recovery Complete: Yes Apparent Anesthesia Complication: No : N - Vital Signs Blood Pressure: 145/67 Pulse: 76 Resp Rate: 20 O2 Sat: 95 Temp: 98.6 F
--- NOTE | 2016-06-16 10:23 | HIM.ANES ---
Anesthesia Evaluation & Plan - Focused Review of Systems Cardiac History: Yes: Hx Hypertension, Hx Cardiac Disorders, Hx Abnormal Cholesterol/Hyperlipidemia HEENT: Yes: Hx Hearing Impairment, Hx Vision Problem, Other HEENT Problems Hx Other HEENT Problems: DEVIATED NASAL SEPTUM, LARYNGEAL CANCER, TUMOR OF SUPRAHYOID EPIGLOTTIS Respiratory: Yes: Hx Asthma, Hx Snoring, Hx Recent Cold/Flu Gastrointestinal: Yes: Hx Gastroesophageal Reflux Disease (Controlled OTC), Hx Colonoscopy, Hx Endoscopy No: Hx Gastrointestinal Disorders Neurological/Musculoskeletal: No: Hx Neurological Disorders Psychological: No Hx Depression, No Hx Mental/Emotional Disorders Blood/Autoimmune: Yes: Hx Anemia Smoking Status: Never smoker Past Social History: Reports: Alcohol Use. 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) Thyromental Distance: Greater than 3 Neck: Limited Range of Motion Dental: Normal - no significant findings Any problems with anesthesia, including nausea and vomiting?: No Beta Shin given (if appropriate): N/A Other: Problem List Problem Status Onset Abdominal pain Acute Chills Acute Epigastric abdominal pain Acute Hyponatremia Acute Calculus of gallbladder with chronic cholecystitis without obstruction Chronic Cholelithiasis Chronic Dog bite Acute CBC/BMP/Other 06/16/16 06:57 06/16/16 06:57 Allergies Allergy/AdvReac Type Severity Reaction Status Date / Time No Known Allergies Allergy Verified 06/14/16 00:15 Home Medications Medication Instructions Recorded Last Taken Type Omeprazole 20 mg PO DAILY 12/12/13 06/13/16 08:00 History Losartan/Hydrochlorothiazide 1 tab PO Q48H 06/14/16 06/13/16 History [Losartan-Hctz 50-12.5 mg Tab] Height and Weight Patient's height 6 ft 1 in Patient's weight 195 lb 5 oz Weight (Calculated Kilograms) 88.592 BMI 25.4 Vital Signs Temperature 98.6 F 06/16/16 10:22 Pulse Rate 76 06/16/16 10:22 Respiratory Rate 20 06/16/16 10:22 Blood Pressure 145/67 06/16/16 10:22 Pulse Oxygen Saturation 95 06/16/16 10:22 - Anesthetic Plan Anesthesia Type: General ASA Class: 3 -: I have examined this patient and reviewed the medical record. The patient has been assessed prior to anesthesia. Risks and benefits of anesthesia and anesthetic technique options have been discussed and all questions answered. The patient accepts the risk and desires me to proceed with the planned anesthetic.
[2016-06-16] MEDS ORDERED: CEFAZOLIN 1 GM VIAL IV ONE (10:30)
--- NOTE | 2016-06-16 12:29 | HIMOPRPT ---
DATE OF PROCEDURE: 06/16/16 Preoperative diagnosis: Cholelithiasis with chronic cholecystitis Postoperative diagnosis: Cholelithiasis with chronic cholecystitis, final pathology pending Procedure: Intraoperative cholangiography under fluoroscopic guidance Surgeon: Des Noble DO Anesthesia: General ANESTHESIOLOGIST: Dr. Forest Dumas Blood loss: None Packings and drains: None Complications: None Operative findings and technique: During the course of laparoscopic cholecystectomy by Dr. Noble, intraoperative cholangiography was performed under fluoroscopic guidance. Fluoroscopic images reveal a cholangiocatheter on the infundibulum of the gallbladder. Contrast dye is noted to fill the infundibulum. Contrast dye is noted to proceed down a spiraling cystic duct into a normal caliber common bile duct. Contrast dye flows antegrade down the common bile duct and into the duodenum. Retrograde filling of the hepatic radicles is noted as well. There is no evidence of common bile duct obstruction or lesion. Impression: Normal intraoperative cholangiography without any evidence of retained common bile duct stone, stricture, or other lesion.
--- NOTE | 2016-06-16 12:29 | HIMOPRPT ---
DATE OF PROCEDURE: 06/16/16 PREOPERATIVE DIAGNOSIS: Chronic cholecystitis with cholelithiasis. POSTOPERATIVE DIAGNOSIS: Chronic cholecystitis with cholelithiasis. PROCEDURE: Laparoscopic cholecystectomy with intraoperative cholangiogram SURGEON: Des Noble DO. ANESTHESIA: General endotracheal. ANESTHESIOLOGIST: Dr. Forest Dumas SPECIMEN: Gallbladder and contents. SPONGE COUNT: Correct. PACKINGS AND DRAINS: 19 italian Gary drain in the right upper quadrant PATIENT CONDITION: Stable. ESTIMATED BLOOD LOSS: 5 ml INDICATIONS: This is a 61-year-old male with right upper quadrant and epigastric abdominal pain. Ultrasound demonstrated gallstones. It was recommend to this patient, laparoscopic cholecystectomy with intraoperative cholangiogram , possible open incision. The risks associated with operation were discussed with the patient and the patient's daughter in detail. These risks include, but not limited to bleeding, infection, port site herniation, injury to intra- abdominal blood vessels, injury to small and large intestine, deep vein thrombosis, resultant pulmonary embolism, perioperative cardiac and respiratory morbidity and mortality, injury to common bile duct resulting in need for reoperation, injury to intrahepatic bile duct resulting in need for percutaneous drainage, possible endoscopic retrograde cholangiopancreatography. All questions were answered and informed consent was obtained. FINDINGS: Gallbladder was severely distended and thick walled. The wall of the gallbladder was edematous. . Moderate omental adhesions of the gallbladder. On intraoperative cholangiogram, no evidence of retained stone or obstruction. OPERATIVE AND TECHNIQUE: With consent, the patient was taken to the operative suite at [facility] and placed in supine position. General anesthesia was induced. Having successful completion of this, hair was clipped free with electric clipper. The anterior abdomen was sterilely prepped and draped in usual fashion. All members of surgical team were in agreement of correct patient and correct procedure. A transverse incision was made in the left upper quadrant as the patient had previous umbilical hernia repair. Incision was carried down through the fascial layers entering the peritoneal cavity under direct visualization. It was insufflated to 15 mmHg and kept at or below this pressure at all times during the course of surgery. A total of 3 accessory ports were placed in the right upper quadrant each 5 mm in size, each placed under laparoscopic visualization. Gallbladder was grasped and elevated. Omental adhesions were removed utilizing gentle blunt dissection staying very close to the gallbladder. Cystic duct and cystic artery were circumferentially isolated. Gallbladder cystic duct junction was clearly visualized. Intraoperative cholangiogram was performed with Torey cholangiocatheter, findings as described above. Once again, the cystic duct circumferentially isolated. Three metallic clips were placed across then transected, leaving 3 on the stump and none on the specimen. Cystic artery was circumferentially isolated. Three metallic placed across were then transected, leaving 2 on the stump and 1 on the specimen. Hemostasis was excellent. Gallbladder was removed from liver bed utilizing electrocautery, placed in Endobag, removed the body and passed off as specimen. Of note, the left upper quadrant incision required extension medially to remove the very large, thick walled gallbladder. Right upper quadrant was vigorously irrigated and aspirated dry. Clips were visualized in place. No evidence of arterial or venous bleeding. No evidence of bile duct leakage. A 19 italian Gary drain was placed in the right upper quadrant under laparoscopic visualization. It was sutured in place with 2-0 Prolene suture. Accessory port sites were hemostatic on removal. CO2 gas was allowed to escape in the peritoneal cavity. Fascia was closed with [id number] Vicryl sutures times x3. Skin was closed with 4-0 Monocryl subcuticular stitch. After infiltration of anesthetic, Dermabond was applied. Sterile occlusive dressing was applied over this. Anesthesia was reversed. Mr. Ontiveros was taken to recovery , having tolerated the procedure well.
--- NOTE | 2016-06-16 14:07 | DIRPT ---
CLINICAL DATA: 61-year-old male with cholecystitis EXAM: INTRAOPERATIVE CHOLANGIOGRAM TECHNIQUE: Cholangiographic images from the C-arm fluoroscopic device were submitted for interpretation post-operatively. Please see the procedural report for the amount of contrast and the fluoroscopy time utilized. COMPARISON: Abdominal ultrasound 06/14/2016 FINDINGS: Three intraoperative spot images obtained during intraoperative cholangiogram at the time of laparoscopic cholecystectomy. The images demonstrate cannulation of the gallbladder neck and opacification of the biliary tree. There is no biliary ductal dilatation, stenosis, stricture or evidence of choledocholithiasis. Contrast material passes freely through the ampulla and into the duodenum. IMPRESSION: Negative intraoperative cholangiogram. Electronically Signed By: Giovanny Hebert M.D. On: 06/16/2016 14:04
--- NOTE | 2016-06-16 14:20 | GENMEDPROG ---
Subjective Note: Patient doing well postoperatively. He is ordering lunch from the menu. Notes Reviewed: Yes Events from last night noted and discussed with Clinical Staff Current Medication List: Reviewed Currently: Reports: Cough, Wheezing, MOSQUERA, Abdominal Pain. Denies: Fever/Chills DVT Prophylaxis: Yes - Physical Examination Vital Signs and I&O: Last Vital Signs Temp 100 F 06/16/16 13:25 Pulse 72 06/16/16 13:40 Resp 18 06/16/16 13:40 BP 149/72 06/16/16 13:40 Pulse Ox 100 06/16/16 13:40 Oxygen Pulse Oxygen Saturation 100 O2 Device Nasal Cannula Oxygen Flow Rate 1 Fraction of Inspired Oxygen ( FIO2) Intake & Output 06/13/16 06/14/16 06/15/16 06/16/16 23:59 23:59 23:59 23:59 Intake Total 3803 4330 1653 Output Total 1700 1700 3135 Balance 2103 2630 -1482 Patient's weight 87.997 kg 87.634 kg 88.592 kg General: Alert, Oriented x3, Cooperative, No acute distress HEENT: Normal, Anicteric Sclera, Mucous membr. moist/pink Neck: Non-tender, Full range of motion, Normal Trachea alignment, Normal inspection (No cervical lymphadenopathy. No supraclavicular lymphadenopathy.), No Masses palpable, Supple Lymphatics: Normal Respiratory: Normal - CTA Cardiovascular: Regular rate and rhythm GI: Normal bowel sounds (normal active sounds), Soft (non-distended), Non tender , No hepatospenomegaly, No masses Extremities/Musculoskeletal: negative: Swelling, Edema Skin: Warm,Dry and Intact, No rashes Neurological: Strength at 5/5 X4 ext (Motor 5/5 throughout.), Normal tone, Cranial nerves 3-12 NL ( 2-12 grossly intact.) Psych/Mental Status: Appropriate, Normal Affect, Cooperative. negative: Agitated, Anxious Lab/DI/Studies Reviewed: Abnormal Lab Results 06/16/16 06/16/16 06:57 06:57 RBC 3.32 L Hgb 10.7 L D Hct 30.1 L MCH 32.2 H Neut % (Auto) 85.5 H Lymph % (Auto) 4.2 L Absolute Lymphs (auto) 0.28 L Sodium 133 L Potassium 3.4 L BUN 4 L Creatinine 0.60 L Glucose 101 H Calculated Osmolality 253 L Calcium 8.3 L - Assessment (1) Hyponatremia Acute E87.1 - HYPO-OSMOLALITY AND HYPONATREMIA Comment/Plan: Continue free water restriction. Advance diet as tolerated. Continues to improve. (2) Cholelithiasis Chronic K80.20 - CALCULUS OF GALLBLADDER W/O CHOLECYSTITIS W/O OBSTRUCTION Qualifiers: Cholelithiasis location: gallbladder Cholecystitis presence: with cholecystitis Cholangitis presence: C Cholecystitis acuity: C Cholangitis acuity: C Biliary obstruction: without biliary obstruction Comment/Plan: Status post cholecystectomy laparoscopic Momo performed by Dr. Noble today. (3) Epigastric abdominal pain Acute R10.13 - EPIGASTRIC PAIN Comment/Plan: Improving current pain is mostly incisional. (4) Chills Resolved R68.83 - CHILLS (WITHOUT FEVER) Comment/Plan: Now resolved. (5) Acute cholecystitis Ruled-out K81.0 - ACUTE CHOLECYSTITIS Comment/Plan: Patient without acute cholecystitis. Does have cholelithiasis however. - Plan Continue postop care. Disposition Plan: Hopefully home soon. Case Care Discussed with: Patient, Consultants, Nursing Staff Education/Counseling Given To: Patient Education/Counseling Given Regarding: Diagnosis, Treatment Total Time: 45 minutes. Critical Care: No Couseling Time (>50% in counseling/coordination): No
[2016-06-16] MEDS ORDERED: ROCURONIUM 50 MG/5 ML VIAL IV ONE (15:59)
[2016-06-16] MEDS ORDERED: LIDOCAINE 4% 5 ML AMPULE NEB ONE (15:59)
[2016-06-16] MEDS ORDERED: ONDANSETRON HCL 4 MG/2 ML VIAL IV ONE (15:59)
[2016-06-16] MEDS ORDERED: HYDROmorphone 2 MG/ML VIAL IM ONE (15:59)
[2016-06-16] MEDS ORDERED: GLYCOPYRROLATE 1 MG VIAL IM ONE (15:59)
[2016-06-16] MEDS ORDERED: SUCCINYLCHOLINE 20 MG/1 ML INJ 10 ML MDV IV ONE (15:59)
[2016-06-16] MEDS ORDERED: DEXAMETHASONE 4 MG/ML VIAL IV ONE (15:59)
[2016-06-16] MEDS ORDERED: PROPOFOL 200 MG/20 ML VIAL IV ONE (15:59)
[2016-06-16] MEDS ORDERED: KETOROLAC TROMETH 30 MG/ML VIAL IM ONE (15:59)
[2016-06-16] MEDS ORDERED: NEOSTIGMINE 1 MG/1 ML (1:1000) INJ 10 ML MDV IM ONE (15:59)
[2016-06-16] MEDS ORDERED: MIDAZOLAM 2 MG/2 ML VIAL IV ONE (15:59)
[2016-06-16] MEDS ORDERED: FENTANYL 100 MCG/2 ML VIAL IV ONE (15:59)
[2016-06-16] MEDS: OXYCODONE HCL 5 MG TABLET PO SCH ×2 (17:40→23:05)
[2016-06-17 00:35] VITALS: TEMP 98.3
[2016-06-17] MEDS: HYDROmorphone 1 MG INJECTION IV PRN (03:53)
[2016-06-17 04:49] VITALS: BP 134/74; PULSE 77
[2016-06-17] MEDS: OXYCODONE HCL 5 MG TABLET PO SCH (05:23)
[2016-06-17] MEDS: PANTOPRAZOLE 40 MG VIAL IV SCH (05:23)
[2016-06-17] MEDS: NS 1,000 ML IV SCH ×2 (05:23→05:54)
[2016-06-17 06:41] LABS: AUTOMATED BASOPHIL 0.1 % (0-2); AUTOMATED EOSINOPHIL 0.3 % (0-5); AUTOMATED LYMPH 3.9 % (17-44); AUTOMATED MONOCYTE 8.2 % (3-10); AUTOMATED NEUTROPHIL 87.5 % (45-76); MPV 8.6 fL (7.4-10.4)
[2016-06-17 07:13] LABS: BLOOD UREA NITROGEN 5 MG/DL (9-20); CALCIUM 7.8 MG/DL (8.4-10.2); CALCULATED OSMOLALITY 255 MOs/Kg (270-290); CHLORIDE 101 mEq/L (98-107); GLUCOSE 126 MG/DL (70-99); SODIUM LEVEL 133 mEq/L (137-146)
[2016-06-17] MEDS ORDERED: PNEUMOCOCCAL 0.5 ML VIAL IM ONE (08:00)
[2016-06-17] MEDS ORDERED: FLU VACCINE (Afluria) 0.5 ML DOSE IM ONE (08:00)
--- NOTE | 2016-06-17 09:16 | PCM.DCS92 ---
- Final/Secondary Discharge Diagnosis (1) Cholelithiasis Chronic K80.20 - CALCULUS OF GALLBLADDER W/O CHOLECYSTITIS W/O OBSTRUCTION Present on Admission: Yes gallbladder with cholecystitis without biliary obstruction Plan/Goal/Comment: The patient is postoperative day #1 laparoscopic cholecystectomy with intraoperative cholangiogram. He denies abdominal pain. He is afebrile. He states that he wants to go home. He is stable for discharge. Full and careful discharge instructions were discussed with the patient. All questions were answered. Discharge Disposition: Home Discharge Condition: Fair Cognitive Discharge Status: Unimpaired Fuctional Discharge Status: Independent Physician Follow up/Referrals: Des Noble DO [Staff Physician] - Call for Appointment Home Medications/ New Prescriptions: New Oxycodone Immediate Release [Oxycodone Immediate Release (OxyIR)] 5 mg PO Q6H PRN #40 tab PRN Reason: Pain Ondansetron HCl [Zofran] 4 mg PO Q6H PRN #15 tab PRN Reason: Nausea/Vomiting Continue Omeprazole 20 mg PO DAILY Losartan/Hydrochlorothiazide [Losartan-Hctz 50-12.5 mg Tab] 1 tab PO Q48H Additional Instructions: Empty and record drain output daily. Use incentive spirometer every hour while awake. Diet at Discharge: As Tolerated, Regular Activity: No Heavy Lifting, No Driving (No driving while taking the prescription analgesics.) Call Office For: Worsening Symptoms, Wound is Draining Pus, Fever over 101 F, Wound is Painful, Wound is Red, Pain Uncontrolled By Meds, Other (See Details) ( Chest pain or difficulty breathing.) Discontinue use of:: Alcohol, All Illegal Substances, All Types of Tobacco - DC Summary Notes Hospital Course Note:: Discharge summary on patient named TODD THOMPSON admitted to [facility] on 06/14/16 by You Mancilla MD. The patient was diagnosed with hyponatremia and cholelithiasis. The patient's sodium improved. The patient underwent laparoscopic cholecystectomy. Please see operative report for full details. He was stable for discharge on 06/17/16. Full and careful discharge instructions were discussed with the patient. All questions were answered. Date of discharge is 06/17/16. Discharge condition: stable Final discharge diagnosis: Hyponatremia, chronic cholecystitis with cholelithiasis Wound Care Surgical Site: Yes May Shower Starting:: 06/18/16 Remove Clear Dressing In How Many Days?: 7 Remove Gauze Dressing in How Many Days?: 7 Ability To Perform Care (if applicable): Yes - Physical Exam Vital Signs: Initial Vitals Temperature 98.5 F 06/14/16 00:15 Pulse Rate 74 06/14/16 00:15 Respiratory Rate 17 06/14/16 00:15 Blood Pressure 159/74 06/14/16 00:15 Pulse Oxygen Saturation 96 06/14/16 00:15 Constitutional: Alert (Awake, Fully oriented. Normal and appropriate affect.Well appearing. Well nourished.), No apparent distress Oriented to: Time, Person, Place - HEENT Head: Normal (normocephalic, atraumatic.), Other (No cervical lymphadenopathy. No supraclavicular lymphadenopathy. Neck: No palpable mass, supple , trachea midline.) Eye: Normal (pupils equal, reactive to light, and round; EOMI, Sclera white) Oropharynx: Normal (Pharynx: Moist without exudate,Gums-no swelling, No oropharyngeal lesions or erythema, Mucous membranes are dry.) ENT EAC: Normal (No oropharyngeal lesions or erythema. Mucous membranes are dry. ) Nose: No Symptoms Reported (septum midline, Nares patent, without discharge or bleeding.) Respiratory: Normal - CTA (Clear to auscultation bilaterally. No wheezing, rales , rhonchi. Chest wall movements are symmetric. No use of accessory muscles to breathe.) Cardiovascular: Normal (RRR , Normal S1, S2. No murmurs, rubs, or gallops. PMI non-displaced. Carotids: no carotid bruits. No bradycardia or tachycardia. DP pulses 2+ bilaterally.) - GI Auscultation: Normal (normal active sounds) Palpation: Normal (Soft,non distended,nontender. No hepatosplenomegaly.) Tenderness: Non tender (No rebound or guarding), Other (Drain is draining serosanguinous fluid) Tello's Sign: Negative Rectal Exam: Deferred - Musculoskeletal Back: Normal (Non-Tender) Extremities: Normal (Normal tone, DP pulses 2+ bilaterally, No cyanosis or edema bilaterally, FROM bilaterally.) - Integumentary Skin: Normal (Clean, dry, and intact. No rashes. No lesions.) Lymphatics: Normal (No cervical lymphadenopathy. No supraclavicular lymphadenopathy.) - Neurologic Memory Impaired: Normal Motor Function: Normal (Motor 5/5 throughout.Normal tone, Pulses 2+ No cyanosis or edema, FROM) Cranial Nerve: Normal (CN II-XII intact sensation, strength 5/5) Cerebellar: Normal (Babinski: toes downgoing bilaterally. Intact Finger to nose. Sensory grossly intact to light touch. Intact rapid alternating movements bilaterally. No pronator drift.) Mood Description: Normal (Fully oriented. Normal and appropriate affect.) Perception: Normal (Normal and appropriate affect.)
== END 2016-06-17 10:53 | disposition home or self-care (01) | DRG 418 ==
LOC: ED 23:55 → MPS3 06-14 04:15
PROVIDERS: ADMIT Internal Medicine; ATTEND Internal Medicine
PROC: BF131ZZ Fluoroscopy of Gallbladder and Bile Ducts using Low Osmolar Contrast (ICD-10-PCS; 2016-06-16)
PROC: 0FT44ZZ Resection of Gallbladder, Percutaneous Endoscopic Approach (ICD-10-PCS; principal; 2016-06-16 10:00)
DX: K80.10 Calculus of gallbladder with chronic cholecystitis without obstruction (principal); E87.1 Hypo-osmolality and hyponatremia; K21.9 Gastro-esophageal reflux disease without esophagitis; J45.909 Unspecified asthma, uncomplicated; Z87.19 Personal history of other diseases of the digestive system; Z85.01 Personal history of malignant neoplasm of esophagus; K66.0 Peritoneal adhesions (postprocedural) (postinfection); K82.8 Other specified diseases of gallbladder
CPT/HCPCS: 36415; 74177; 74300; 76700; 80048; 80053; 81001; 83690; 83735; 84484; 85025; 85027; 90656; 90732; 93005; 96361; 96374; 96375; 96376; 99284; A9698; J0330; J0690; J1100; J1170; J1885; J2250; J2270; J2405; J2550; J2710; J3010; J3490; S0164